=== PATIENT | female | born 1975 | race Caucasian/White ===

== ENCOUNTER 2016-05-28 20:08 | Emergency (ER) | payer SELFPAY ==
[~2016-05-28] VITALS: Ht 160 cm; Wt 113.9 kg
[2016-05-28] MEDS ORDERED: LORA10TA62 PO (20:23)
[2016-05-28] MEDS ORDERED: IBUP-1724 PO (20:23)
[2016-05-28] MEDS ORDERED: D ME PO (20:23)
--- NOTE | 2016-05-28 20:35 | ERPDOC ---
Departure Disposition Decision Date: May 28, 2016 Disposition Decision Time: 21:25 Disposition: 01 DISCHARGED HOME, SELF-CARE Impression Impression Impression: Primary Impression: Fracture of metatarsal bone of left foot Encounter type: initial encounter Metatarsal bone: fourth Fracture type: closed Fracture alignment: nondisplaced Qualified Codes: S92.345A - Nondisplaced fracture of fourth metatarsal bone, left foot, initial encounter for closed fracture Severity: Moderate Condition: Stable Seen By: Physician only Patient Instructions: Foot Fracture in Adults (ED) Problems/Meds/Labs Reviewed?: Yes Medications reviewed and manag: Yes Additional Instructions: Recommend ibuprofen 800 mg every 8 hours for the 1st 3 days then as needed May take [place] 1 to 2 every 6 hours as needed, do not take other Tylenol complaining compounds. Wear flat soled open toed shoes for 2 weeks Call orthopedist office Tuesday morning for follow-up appointment Departure Forms: Return to Work/School Permit Return to Work/School Date: May 28, 2016 Follow up care ordered?: Yes Mental Status: Alert, Oriented Scripts Hydrocodone/Apap (Mexican Hat 5-325 Tablet) 5-325 Tablet 1-2 TAB PO Q6H Y for PAIN, #20 TAB Prov: SOCORRO JACKSON MD 05/28/16 HPI General Chief Complaint: Lower Extremity Pain Stated Complaint: PAINFUL LEFT FOOT Time Seen by Provider: 20:34 Source: patient Exam Limitations: no limitations HPI Foot/Ankle Initial Comments Patient is a 41-year-old female presents emergency room for evaluation of left foot pain. Patient tripped over a mat at work 2 months ago has had left foot pain with swelling since then. Patient's pain has been getting worse, patient now has discoloration and swelling. Patient decided to present to the ER for evaluation. For 100 mg of ibuprofen with no relief this evening Occurred At: work Duration: other (2 months) Pain Scale: Now & Worst: 8/10 Location: left: foot Allergies: Coded Allergies: NKDA (Verified Allergy, Unknown, 05/28/16) Past History Past Medical History Pt denies signifigant PMH Surgical History Denies Surgeries Family History Family PMH: FOUND: [place], diabetes, hypertension Social History Smoking Status: Current every day smoker Substance Use Type: does not use Alcohol Intake: none Review of Systems Constitutional Constitutional: DENIES: appetite decrease, chills, dizziness, fever, weakness ENMT Mouth/Throat: DENIES: sore throat Cardiovascular Cardiac: DENIES: chest pain Pulmonary Respiratory: DENIES: cough GI Upper Abdomen: DENIES: pain Lower Abdomen: DENIES: pain General: DENIES: frequency, urgency Musculoskeletal General: see HPI Integumentary Skin: DENIES: color change, itching, rash Endocrine Endocrine: DENIES: heat/cold intolerance Hematologic/Lymphatic Hematologic/Lymphatic: DENIES: anemia Exam General General Nourishment: well nourished, well developed, obese Vital Signs: RN Vital Signs have been reviewed: Yes [employer]rak Foot/Ankle Foot/Ankle : Leg: Left Leg: NOT FOUND: contusion, discoloration, swelling, tender Ankle: ecchymosis, swelling, tender mid foot, NOT FOUND: numbness, tender lat. foot, tender lat. malleolus, tender med. malleolus, weakness Foot: discoloration, swelling, NOT FOUND: numbness, tender 1st MTP joint, tender plantar fascia Toes: NOT FOUND: decreased ROM, nail avulsion, subungual hematoma Posterior Tibial Pulse: 3+ Dorsalis Pedis Pulse: 3+ Neurologic RN Documented GCS Eye Opening: Verbal: Motor: Total: Differential Diagnoses Considering: Contusion, Dislocation, Fracture, Sprain, Strain Progress Results/Orders Orders Medications Current ED Medications Acetaminophen/ Hydrocodone Bitart (Mex[place] 7.5/325) 1 tab O ONCE PO Last administered on 05/28/16 21:15; Start 05/28/16 at 21:15; Stop 05/28/16 at 21:16; Status DC Acetaminophen/ Hydrocodone Bitart (NORCO 5 (PrePack)) 1 pack O ONCE SENT HOME Last administered on 05/28/16 21:30; Start 05/28/16 at 21:30; Stop 05/28/16 at 21: 31; Status DC Xray Xray : Xray: Foot L Interpretation: Abnormal, Interpreted by Me (irregularity of base of 4th metatarsal at point of maximal tenderness concerning for fracture) SOCORRO JACKSON MD May 28, 2016 20:34
[2016-05-28 20:37] VITALS: Ht 160 cm; Wt 113.9 kg
[2016-05-28] MEDS ORDERED: HYDR-3989 PO (21:27)
[2016-05-28] MEDS ORDERED: HYDROCODONE/APAP 5/325 (PrePack) SENT HOME ONE (21:30)
[2016-05-28 21:43] VITALS: BP 151/78; PULSE 91; RESP 17; O2SAT 100
--- NOTE | 2016-05-30 09:51 | DI ---
Indication: ITS.REASON: left foot pain, swelling PROCEDURE: FOOT LEFT 3 VIEWS: Encounter: Initial Comparison: July 13, 2010 Findings: There is subtle area of lucency along the base of the metatarsal. There are osseous undulations and irregularity here which are present previously on the 2010 comparison however there is one tiny area which may be new. No additional area concerning for acute fracture. No dislocation. Joint spaces are maintained. Impression: Subtle lucency in the fourth metatarsal base could be due to artifact and bony overlap or nondisplaced fracture. Further evaluation with CT can be performed as clinically indicated. .
== END 2016-05-28 21:43 | disposition home or self-care (01) ==
LOC: ED 20:08
DX: S92.345A Nondisplaced fracture of fourth metatarsal bone, left foot, initial encounter for closed fracture (principal); W18.40XA Slipping, tripping and stumbling without falling, unspecified, initial encounter; Y93.9 Activity, unspecified; Y92.9 Unspecified place or not applicable; Y99.0 Civilian activity done for income or pay

== ENCOUNTER → 2016-06-16 | Outpatient (CLI) | payer OTHER ==
[~2016-06-16] MED LIST: D ME PO; HYDR-3989 PO; IBUP-1724 PO; LORA10TA62 PO
--- NOTE | 2016-06-16 09:35 | DI ---
Indication: ITS.REASON: S99.922A Unspecified injury of left foot, initial encounter PROCEDURE: MRI FOOT LEFT W/O CONTRAST: Comparison: Left foot radiographs dated May 28, 2016 Technique: Multiplanar multisequence MR imaging of the left foot was performed without contrast. Findings: There is a focal 1 cm area of edema in the posterior medial talar dome best seen on axial T1 image #9. The bone marrow signal intensity is otherwise normal. No acute fracture identified. Flexor and extensor tendons are maintained. Foot musculature signal intensity is normal. The Lisfranc ligament is intact. The visualized flexor and extensor tendons appear normal as does the Achilles tendon. The anterior talofibular ligament appears intact. There is some loss of fat suppression noted incidentally in the area of the toes. Plantar fascia appears normal. 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 .
== END ==
LOC: IMA 08:11
PROVIDERS: ATTEND Family Medicine Sports Medicine
DX: M93.272 Osteochondritis dissecans, left ankle and joints of left foot (principal); Z91.81 History of falling